=== PATIENT | male | born 1985 | race Caucasian/White ===

== ENCOUNTER 2019-12-20 02:22 | Emergency (ER) | payer SELFPAY ==
--- NOTE | 2019-12-20 03:07 | RADIOLOGY REPORT (SQ) ---
EXAM DESCRIPTION: XR FOOT 3 OR MORE VIEWS COMPLETED DATE/TME: 12/20/2019 02:35 CLINICAL HISTORY: 34 years, Male, heard a pop with fall, swelling, COMPARISON: None. NUMBER OF VIEWS: 3 TECHNIQUE: 3 views left foot LIMITATIONS: None. FINDINGS: Negative for acute fracture or dislocation. Lateral soft tissue swelling IMPRESSION: Soft tissue swelling. Negative for fracture copyright 2010 [employer]- All Rights Reserved
[2019-12-20] MEDS ORDERED: OXYCODONE-ACETAMINOPHEN 5-325 MG TABLET PO ONE (03:44)
[2019-12-20] MEDS ORDERED: ONDANSETRON 4 MG TAB.RAPDIS PO ONE (03:44)
--- NOTE | 2019-12-20 03:46 | ER Document Report ---
HPI - HPI Time Seen by Provider: 12/20/19 03:36 Pain Level: 3 Context: Patient is a 34-year-old male that comes emergency department for chief complaint of left ankle/foot injury. He states that this evening he slipped when he was in the kitchen reaching up into a cabinet, fell backwards, rapidly pulled up and twisted his foot, felt a pop. He states that since this time he has had swelling and pain. He is able to walk but with discomfort. He denies any other injuries including back or head injury. He denies alcohol, blood thinner use, or any daily medications. He denies any other complaints. - MUSCULOSKELETAL Musculoskeletal: REPORTS: Extremity pain - left foot - DERM Skin Color: Normal Past Medical History - General Information source: Patient - Social History Smoking Status: Current Every Day Smoker Chew tobacco use (# tins/day): No Frequency of alcohol use: Occasional Drug Abuse: None Lives with: Family Family History: Reviewed & Not Pertinent Renal/ Medical History: Denies: Hx Peritoneal Dialysis GI Medical History: Reports: Hx Hepatitis Infectious Medical History: Reports: Hx Hepatitis Past Surgical History: Reports: Hx Cardiac Surgery, Hx Pacemaker - Immunizations Immunizations up to date: Yes Hx Diphtheria, Pertussis, Tetanus Vaccination: Yes Vertical Provider Document - CONSTITUTIONAL General Appearance: WD/WN, No Apparent Distress - INFECTION CONTROL TRAVEL OUTSIDE OF THE [place] IN LAST 30 DAYS: No - HEENT HEENT: Atraumatic, Normocephalic - NECK Neck: Normal Inspection - RESPIRATORY Respiratory: Breath Sounds Normal, No Respiratory Distress - CARDIOVASCULAR Cardiovascular: Regular Rate, Regular Rhythm - GI/ABDOMEN Gastrointestinal: Abdomen Soft, Abdomen Non-Tender - BACK Back: Normal Inspection - MUSCULOSKELETAL/EXTREMETIES Musculoskeletal/Extremeties: MAEW, FROM, Tender - Left ankle pain with mild soft tissue swelling especially over the medial aspect of the ankle at the malleolus. No overt signs of trauma otherwise, no ecchymosis, sensation and cap refill intact, normal dorsalis pedis, normal leg, knee, hip exam. No open wounds. - NEURO Level of Consciousness: Awake, Alert, Appropriate Motor/Sensory: No Motor Deficit, No Sensory Deficit - DERM Integumentary: Warm, Dry, No Rash Course - Re-evaluation Re-evalutation: X-rays of the foot and ankle showing soft tissue swelling but no fracture or concerning findings otherwise. No other injuries. I suspect a sprain, neurovascularly intact. Discussed care, follow-up, return cautions. Patient states understanding and agreement. - Vital Signs Vital signs: Temp Pulse Resp BP Pulse Ox 97.9 F 101 H 16 134/87 H 95 12/20/19 02:28 12/20/19 02:28 12/20/19 02:28 12/20/19 02:28 12/20/19 02:28 Procedures - Immobilization Left ankle Pre-Proc Neuro Vasc Exam: Normal Immobilizer type: Robbie wrap, Ankle stirrup Performed by: RN Post-Proc Neuro Vasc Exam: Normal Alignment checked and good: Yes Discharge - Discharge Clinical Impression: Left foot pain Left ankle injury Qualifiers: Encounter type: initial encounter Qualified Code(s): S99.912A - Unspecified injury of left ankle, initial encounter Condition: Stable Disposition: HOME, SELF-CARE Additional Instructions: Your evaluation shows soft tissue swelling but no fracture or concerning finding is seen otherwise. This is most likely a sprain. I recommend that you wear the splint/Robbie wrap, use the crutches for the next 2 to 3 days, elevate whenever possible, ice 3-4 times a day for 10 to 15 minutes, and take the anti- inflammatory as prescribed. Symptoms should simply resolve. Follow-up with primary care. Return if you worsen including severe worsening pain or swelling, or any other concerning or worsening symptoms. Prescriptions: Ibuprofen [Ibu] 800 mg PO TID PRN #21 tablet PRN Reason: Forms: Return to Work
--- NOTE | 2019-12-20 04:21 | RADIOLOGY REPORT (SQ) ---
EXAM DESCRIPTION: Left ankle [employer]: XR ANKLE 3 OR MORE VIEWS Views: 3 CLINICAL HISTORY: 34 years Male; fall, injury, swelling; COMPARISON: None. FINDINGS: Negative for acute fracture, dislocation, or radiopaque foreign body. IMPRESSION: 1. No acute findings.
[2019-12-20 05:23] VITALS: BP 125/78
== END 2019-12-20 05:23 | disposition home or self-care (01) ==
LOC: ER 02:22
DX: S99.912A Unspecified injury of left ankle, initial encounter (principal); W01.0XXA Fall on same level from slipping, tripping and stumbling without subsequent striking against object, initial encounter; Y92.000 Kitchen of unspecified non-institutional (private) residence as the place of occurrence of the external cause; F17.200 Nicotine dependence, unspecified, uncomplicated
CPT/HCPCS: 99283; 73610; 73630; 29515; S0119